=== PATIENT | female | born 1980 | race Caucasian/White ===

== ENCOUNTER → 2019-09-21 10:06 | Outpatient (CLI) | payer BC ==
[2015-05-03 07:52] VITALS: BMI 17.9
[~2019-09-21 10:06] MED LIST: HYDROCODONE-APA1 TAB PO; IMITREX50 MG PO; XANAX0.5 MG
== END | disposition home or self-care (01) ==
LOC: D.ECHO 08-24 09:00
PROVIDERS: ATTEND Family Medicine
DX: R00.2 Palpitations (principal)